=== PATIENT | female | born 1990 | race Caucasian/White ===

== ENCOUNTER 2020-07-06 14:55 | Inpatient (IN) | payer MEDICAID ==
[~2020-07-06] VITALS: Ht 154.9 cm; Wt 110.7 kg
[2020-07-06 16:30] VITALS: BP 133/95
[2020-07-06] MEDS ORDERED: ACETAMINOPHEN 325 MG TABLET PO PRN (17:30)
[2020-07-06] MEDS: IV NS 0.9% 1,000 ML IV SCH (18:02)
[2020-07-06] MEDS: MORPHINE SULFATE INJ 2 MG/ML DISP.SYRIN IV PRN ×2 (18:03→22:45)
[2020-07-06] MEDS ORDERED: ONDANSETRON HCL/PF 4 MG/2 ML VIAL IVP PRN (18:30)
[2020-07-06] MEDS ORDERED: Z GUARD REMEDY 2 OZ OINT TP PRN (18:30)
[2020-07-06] MEDS ORDERED: MAGNESIUM HYDROXIDE 30 ML UDC PO PRN (18:30)
[2020-07-06] MEDS ORDERED: MAG HYDROX/AL HYDROX/SIMETH 30 ML UDC PO PRN (18:30)
--- NOTE | 2020-07-06 19:30 | NUR ---
MS RN OPENING NOTE RECEIVED PATIENT IN BED. A/OX3. TOLERATING ROOM AIR. RESPIRATIONS ARE EVEN AND UNLABORED. NO S/S SOB NOTED. C/O PAIN N LEGS AND BACK. INFORMED PATIENT WILL TAKE A LOOK AT HER CHART TO SEE WHEN MEDICATIONS IS DUE. IN NO APPARENT DISTRESS. IV ACCESS IN RIGHT HAND#22 RUNNING NS@125ML/HR. BED IA LOW AND LOCKED, HOB ELEVATED IN SEMI FOWLERS, SIDE RAILS UP X2, CALL LIGHT WITHIN REACH. WILL CONTINUE TO MONITOR THROUGHOUT SHIFT.
[2020-07-06 20:00] VITALS: BP 131/88
--- NOTE | 2020-07-06 20:10 | NUR ---
MS/RN CLOSING NOTE PATIENT AWAKE IN HOSPITAL BED, A/O X4. NO ACUTE DISTRESS NOTED. PATIENT ON ROOM AIR TOLERATING WELL, NO SOB NOTED, BREATHING EVEN, NON LABORED. SAFETY MEASURES IN PLACE, BED LOCKED AND IN LOWEST POSITION, CALL LIGHT WITHIN REACH. WILL EDNORSE TO SUPERVISOR GEAR REPAIR NURSE.
[2020-07-06] MEDS: HYDROCODONE/APAP 5/325MG TABLET PO PRN (21:03)
[2020-07-07] MEDS: IV NS 0.9% 1,000 ML IV SCH ×3 (01:26→17:15)
[2020-07-07] MEDS: HYDROCODONE/APAP 5/325MG TABLET PO PRN ×4 (01:29→22:05)
[2020-07-07] MEDS: MORPHINE SULFATE INJ 2 MG/ML DISP.SYRIN IV PRN ×4 (02:58→20:02)
[2020-07-07 06:29] LABS: BASOPHILS % (AUTO) 0.3 % (0.0-2.0); EOSINOPHILS % (AUTO) 1.7 % (0.0-6.0); HEMATOCRIT 44 % (33-45); HEMOGLOBIN 14.9 g/dL (11.5-14.8); LYMPHOCYTES # (AUTO) 1.6 /CMM (0.8-4.8); LYMPHOCYTES % (AUTO) 18.5 % (20.0-44.0); MEAN CORPUSCULAR HGB CONC 34 g/dl (31.0-36.0); MEAN CORPUSCULAR VOLUME 91 fL (82-100); MONOCYTES # (AUTO) 0.6 /CMM (0.1-1.30); MONOCYTES % (AUTO) 6.9 % (2.0-12.0); NEUTROPHILS # (AUTO) 6.2 /CMM (1.8-8.9); NEUTROPHILS % (AUTO) 72.6 % (43.0-81.0); PLATELET COUNT (AUTO) 251 /CMM (150-450); RED BLOOD CELL COUNT(AUTO) 4.85 MIL/uL (4.0-5.2); WHITE BLOOD COUNT (AUTO) 8.5 K/uL (4.3-11.0)
--- NOTE | 2020-07-07 06:42 | NUR ---
MS RN OPENING NOTE PATIENT RESTING IN BED. A/OX3. REMAINS TOLERATING ROOM AIR.NO RESP DISTRESS. MANAGED PAIN WITH NORCO 5 AND MORPHINE THROUGHOUT SHIFT. NO DISTRESS. IV ACCESS MAINTAINED IN RIGHT HAND#22 RUNNING NS@125ML/HR. BED REMAINS LOW AND LOCKED, HOB ELEVATED IN SEMI FOWLERS, SIDE RAILS UP X2, CALL LIGHT WITHIN REACH. WILL ENDORSE TO ONCOMING SHIFT.
--- NOTE | 2020-07-07 07:10 | NUR ---
MS RN OPENING NOTE RECEIVED PATIENT IN BED. A/O X4. AMBULATORY. ON ROOM AIR, NO SOB NOTED. NO S/S OF RESPIRATORY DISTRESS. PATIENT IS IN PAIN, 8/10, FELT IN THE BACK GOING DOWN TO THE LEGS. IV ACCESS ON R HAND #22 G, INTACT, NS RUNNING @ 125 ML/HR. SAFETY MEASURES MAINTAINED. BED IN LOWEST POSITION, BRAKES LOCKED. SIDE RAILS UP X2. CALL LIGHT WITHIN REACH. WILL CONTINUE PLAN OF CARE.
[2020-07-07 07:13] LABS: CALCIUM, SERUM 7.8 mg/dL (8.5-10.1); CREATININE 0.6 mg/dL (0.6-1.3)
[2020-07-07 08:00] VITALS: BP 151/92
--- NOTE | 2020-07-07 12:15 | NUR ---
MS RN NOTE URINE SPECIMEN COLLECTED FOR TEST.
[2020-07-07 16:00] VITALS: BP 148/88
--- NOTE | 2020-07-07 18:19 | NUR ---
MS RN CLOSING NOTE PATIENT RESTING IN BED. A/O X4. AMBULATORY. ON ROOM AIR, NO SOB NOTED. IN NO APPARENT DISTRESS. IV ACCESS ON R HAND #22 G, INTACT AND PATENT, NS RUNNING @ 125 ML/HR. ALL NEEDS HAVE BEEN MET. ROUTINE MEDS WERE GIVEN ORDERED. SAFETY MEASURES MAINTAINED. BED IN LOWEST POSITION, BRAKES LOCKED. SIDE RAILS UP X2. CALL LIGHT WITHIN REACH. WILL ENDORSE CONTINUITY OF CARE TO ONCOMING SHIFT.
[2020-07-07 20:00] VITALS: BP 105/67
--- NOTE | 2020-07-07 20:55 | NUR ---
MS RN OPENING NOTE RECEIVED PATIENT IN BED. A/OX3. TOLERATING ROOM AIR. RESPIRATIONS ARE EVEN AND UNLABORED. NO S/S SOB NOTED. C/O PAIN WILL ADMINISTER NEXT PAIN MEDICATION IF AVAILABLE. NO APPARENT DISTRESS. IV ACCESS IN RIGHT HAND#22 RUNNING NS@125ML/HR. BED IS LOW AND LOCKED, HOB ELEVATED IN SEMI FOWLERS, SIDE RAILS UP X2, CALL LIGHT WITHIN REACH. WILL CONTINUE TO MONITOR THROUGHOUT SHIFT.
[2020-07-08] MEDS: IV NS 0.9% 1,000 ML IV SCH ×3 (00:58→18:11)
[2020-07-08] MEDS: MORPHINE SULFATE INJ 2 MG/ML DISP.SYRIN IV PRN ×3 (01:27→14:54)
[2020-07-08] MEDS ORDERED: FUROSEMIDE 20 MG/2 ML VIAL IV ONE (05:00)
[2020-07-08 06:32] LABS: BASOPHILS % (AUTO) 0.2 % (0.0-2.0); EOSINOPHILS % (AUTO) 3.1 % (0.0-6.0); HEMATOCRIT 42 % (33-45); HEMOGLOBIN 14.2 g/dL (11.5-14.8); LYMPHOCYTES # (AUTO) 1.4 /CMM (0.8-4.8); MEAN CORPUSCULAR HGB CONC 34 g/dl (31.0-36.0); MEAN CORPUSCULAR VOLUME 91 fL (82-100); MONOCYTES # (AUTO) 0.6 /CMM (0.1-1.30); MONOCYTES % (AUTO) 8.1 % (2.0-12.0); NEUTROPHILS # (AUTO) 5.4 /CMM (1.8-8.9); NEUTROPHILS % (AUTO) 70.6 % (43.0-81.0); PLATELET COUNT (AUTO) 230 /CMM (150-450); RED BLOOD CELL COUNT(AUTO) 4.66 MIL/uL (4.0-5.2); WHITE BLOOD COUNT (AUTO) 7.6 K/uL (4.3-11.0)
--- NOTE | 2020-07-08 06:48 | NUR ---
MS RN CLOSING NOTE PATIENT IN BED. A/OX3. TOLERATING ROOM AIR. NO RESP DISTRESS. MANAGED PAIN WITH MORPHINE AND NORCO. PATIENT HAS NOT HAD A BM, INFORMED HER THAT WITH PAIN MEDICATION SHE WILL GET CONSTIPATED AND IF SHE WOULD LIKE SOMETHING TO HELP HER HAVE A BM, PATIENT STATED YES BUT LATER. NO DISTRESS. IV ACCESS MAINTAIN IN LEFT WRIST #22#22 RUNNING NS@125ML/HR. BED IS LOW AND LOCKED, HOB ELEVATED IN SEMI FOWLERS, SIDE RAILS UP X2, CALL LIGHT WITHIN REACH. WILL ENDORSE TO ONCOMING SHIFT
--- NOTE | 2020-07-08 07:30 | NUR ---
MS RN OPENING NOTE RECEIVED PATIENT LYING IN BED, AWAKE. A/O X3. ON ROOM AIR. RESPIRATIONS EVEN AND UNLABORED. NO RESPIRATORY DISTRESS NOTED. C/O PAIN 11/20 - WILL ADMINISTER NEXT PAIN MEDICATION IF AVAILABLE. IV ACCESS IN RIGHT HAND #22 RUNNING NS @125ML/HR. BED LOCKED AND IN LOWEST POSITION, HOB ELEVATED IN SEMI FOWLERS, SIDE RAILS X2. CALL LIGHT WITHIN REACH. WILL CONTINUE TO MONITOR.
[2020-07-08 07:32] LABS: CALCIUM, SERUM 8.6 mg/dL (8.5-10.1); CREATININE 0.7 mg/dL (0.6-1.3); PHOSPHORUS 2.9 mg/dL (2.5-4.9); POTASSIUM 3.7 mmol/L (3.5-5.1)
[2020-07-08] MEDS: HYDROCODONE/APAP 5/325MG TABLET PO PRN ×3 (08:33→18:50)
[2020-07-08 08:56] VITALS: BP 110/64
--- NOTE | 2020-07-08 12:39 | NUR ---
CRITICAL LAB RESULT RECEIVED CRITICAL LAB RESULT FROM [facility] - CK: 52.6
[2020-07-08] MEDS: diphenhydrAMINE HCL 25 MG CAPSULE PO PRN (13:10)
[2020-07-08 16:11] VITALS: BP 109/64
--- NOTE | 2020-07-08 18:43 | NUR ---
MS RN OPENING NOTE PATIENT CURRENTLY LYING IN BED, AWAKE AND WATCHING TV. A/O X3. ON ROOM AIR. RESPIRATIONS EVEN AND UNLABORED. NO RESPIRATORY DISTRESS NOTED. C/O PAIN 09/20, DOES NOT WANT MEDICATION AT THIS TIME. LAST PAIN MED GIVEN @ 1454 - MORPHINE 2MG IV. IV ACCESS IN RIGHT HAND #22 RUNNING NS @125ML/HR. BED LOCKED AND IN LOWEST POSITION, HOB ELEVATED IN SEMI FOWLERS, SIDE RAILS X2. CALL LIGHT WITHIN REACH. WILL ENDORSE TO [employer] SETTER NURSE.
--- NOTE | 2020-07-08 19:36 | NUR ---
RN NOTES PATIENT CURRENTLY LYING IN BED, AWAKE AND WATCHING TV. A/O X3. ON ROOM AIR. RESPIRATIONS EVEN AND UNLABORED. NO RESPIRATORY DISTRESS NOTED. IV ACCESS IN RIGHT HAND #22 RUNNING NS @125ML/HR. BED LOCKED AND IN LOWEST POSITION, HOB ELEVATED IN SEMI FOWLERS, SIDE RAILS X2. CALL LIGHT WITHIN REACH. WILL CONTINUE TO MONITOR.
[2020-07-08 20:00] VITALS: BP 101/60
[2020-07-08 21:03] VITALS: BP 101/60
[2020-07-08 23:17] LABS: BILIRUBIN,URINE NEGATIVE (NEGATIVE); COLOR,URINE YELLOW (YELLOW); LEUKOCYTE ESTERASE ,URINE NEGATIVE (NEGATIVE); NITRITE, URINE NEGATIVE (NEGATIVE); PROTEIN,URINE NEGATIVE (NEGATIVE); UGLUCOSE NEGATIVE (NEGATIVE); UROBILINOGEN,URINE 0.2 EU/dL (0.2)
[2020-07-08 23:26] LABS: BACTERIA,URINE None seen /HPF (None Seen); MUCUS,URINE Few /LPF (None Seen); RBC,URINE 0-2 /HPF (0-2); SQUAMOUS EPITHELIAL CELL,UR Moderate /HPF (None Seen)
[2020-07-08 23:48] LABS: EOSINOPHIL,URINE None Seen
[2020-07-09] MEDS: IV NS 0.9% 1,000 ML IV SCH ×2 (00:08→09:13)
[2020-07-09 00:44] LABS: CREATININE, URINE < 13.0 MG/DL (30.0-125.0); URINE SODIUM, RANDOM 19 mmol/l (40-220)
[2020-07-09] MEDS: MORPHINE SULFATE INJ 2 MG/ML DISP.SYRIN IV PRN ×2 (04:57→15:12)
[2020-07-09] MEDS: diphenhydrAMINE HCL 25 MG CAPSULE PO PRN ×2 (05:09→21:14)
[2020-07-09 06:28] LABS: BASOPHILS % (AUTO) 0.2 % (0.0-2.0); EOSINOPHILS % (AUTO) 3.4 % (0.0-6.0); HEMATOCRIT 41 % (33-45); LYMPHOCYTES # (AUTO) 1.4 /CMM (0.8-4.8); LYMPHOCYTES % (AUTO) 17.5 % (20.0-44.0); MEAN CORPUSCULAR HGB CONC 34 g/dl (31.0-36.0); MEAN CORPUSCULAR VOLUME 90 fL (82-100); MONOCYTES # (AUTO) 0.5 /CMM (0.1-1.30); MONOCYTES % (AUTO) 7.1 % (2.0-12.0); NEUTROPHILS # (AUTO) 5.5 /CMM (1.8-8.9); NEUTROPHILS % (AUTO) 71.8 % (43.0-81.0); PLATELET COUNT (AUTO) 226 /CMM (150-450); RED BLOOD CELL COUNT(AUTO) 4.53 MIL/uL (4.0-5.2); WHITE BLOOD COUNT (AUTO) 7.7 K/uL (4.3-11.0)
[2020-07-09 06:43] LABS: CALCIUM, SERUM 8.8 mg/dL (8.5-10.1); CREATININE 0.6 mg/dL (0.6-1.3); MAGNESIUM 2.2 mg/dL (1.8-2.4); PHOSPHORUS 2.6 mg/dL (2.5-4.9); POTASSIUM 3.9 mmol/L (3.5-5.1)
--- NOTE | 2020-07-09 07:02 | NUR ---
RN NOTES PATIENT CURRENTLY LYING IN BED, AWAKE AND WATCHING TV. A/O X3. ON ROOM AIR. RESPIRATIONS EVEN AND UNLABORED. NO RESPIRATORY DISTRESS NOTED. IV ACCESS IN RIGHT HAND #22 RUNNING NS @125ML/HR. BED LOCKED AND IN LOWEST POSITION, HOB ELEVATED IN SEMI FOWLERS, SIDE RAILS X2. CALL LIGHT WITHIN REACH. WILL ENDORSE CARE TO DAY SHIFT NURSE.
--- NOTE | 2020-07-09 07:47 | NUR ---
MS RN OPENING NOTE RECEIVED PATIENT IN BED. A/O X4. PATIENT IS STABLE ON ROOM AIR. NO SOB NOTED. NO S/S OF RESPIRATORY DISTRESS. PATIENT IS AMBULATORY WITH [facility]. PATIENT HAS NO C/O PAIN AT THIS TIME. IV ACCESS ON LEFT WRIST #22 G, NS RUNNING @ 125 ML/HR. IV IS INTACT AND PATENT. SAFETY MEASURES MAINTAINED. BED IN LOWEST POSITION, SIDE RAILS UP X2. BRAKES LOCKED. CALL LIGHT AND SIDE TABLE WITHIN REACH. WILL CONTINUE PLAN OF CARE.
[2020-07-09 08:00] VITALS: BP 111/68
[2020-07-09] MEDS: HYDROCODONE/APAP 5/325MG TABLET PO PRN ×2 (09:00→19:56)
--- NOTE | 2020-07-09 09:00 | NUR ---
MS RN PAIN PATIENT C/O ACHING PAIN ALONG LEFT THIGH, RATED 7/10 ON PAIN SCALE. PT WAS MOANING AND GRASPING SITE. VS WNL. PER PT REQUEST, NORCO 3-325 MG PO Q4H PRN AT THIS TIME. WILL CONTINUE TO MONITOR.
[2020-07-09] MEDS: IV NS 0.9% 1,000 ML IV PRN ×2 (10:34→18:36)
--- NOTE | 2020-07-09 15:12 | NUR ---
MS RN PAIN PATIENT C/O ACHING PAIN ALONG LEFT THIGH, RATED 9/10 ON PAIN SCALE. PT WAS MOANING AND GRASPING SITE. VS BP126/84, HR 80, RR 20, T 98.1, SPO2 100%. PER PT REQUEST, MORPHINE 2 MG/ML IV Q4H PRN ADMINISTERED AT THIS TIME. WILL CONTINUE TO MONITOR.
--- NOTE | 2020-07-09 15:33 | NUR ---
IV ACCESS INSERTED IN RFA G #22, GOOD BLOOD RETURN NOTED. INTACT, PATENT, AND FLUSHING WELL. PT TOLERATED WELL. WILL CONTINUE WITH PLAN OF CARE.
--- NOTE | 2020-07-09 18:48 | NUR ---
MS RN CLOSING NOTE PATIENT RESTING COMFORTABLY IN BED. A/O X4. PT IS AMBULATORY WITH [facility]. PT IS STABLE ON ROOM AIR. NO SOB NOTED. NO S/S OF RESPIRATORY DISTRESS. IV ACCESS IS INTACT AND PATENT, NS RUNNING @ 125 ML/HR. ALL NEEDS HAVE BEEN MET. PAIN MANAGEMENT ADMINISTERED PER ORDER. SAFETY PRECAUTIONS MAINTAINED AT ALL TIMES. BED IN LOWEST POSITION, BRAKES LOCKED. SIDE RAILS UP X2. CALL LIGHT AND SIDE TABLE WITHIN REACH. WILL ENDORSE TO ONCOMING NURSE FOR CONTINUITY OF CARE.
--- NOTE | 2020-07-09 18:58 | NUR ---
PT C/O OF CONSTIPATION AT THIS, ACTIVE BOWEL SOUNDS NOTED IN ALL QUADRANTS, ABDOMEN IS SOFT AND NON TENDER. PT STATES "I HAVE NOT HAD A BOWEL MOVEMENT SINCE HOSPITALIZATION". PER PT REQUEST, MILK OF MAGNESIA 30MLPO HS PRN FOR CONSTIPATION WAS ADMINISTERED AT THIS TIME. WILL ENDORSE TO CASINO MANAGER NURSE FOR CONTINUE MONITORING Addendum: 07/09/20 at 1901 by SHERRON HEIN RN PT C/O OF CONSTIPATION AT THIS, ACTIVE BOWEL SOUNDS NOTED IN ALL QUADRANTS, ABDOMEN IS SOFT AND NON TENDER. PT STATES "I HAVE NOT HAD A BOWEL MOVEMENT SINCE HOSPITALIZATION". PER PT REQUEST, MILK OF MAGNESIA 30ML PO HS PRN FOR CONSTIPATION WAS ADMINISTERED AT THIS TIME. WILL ENDORSE TO CASINO MANAGER NURSE FOR CONTINUE MONITORING
--- NOTE | 2020-07-09 19:42 | NUR ---
MS RN OPENING NOTE Patient awake in bed, A/O x4. Breathing even and unlabored. No acute distress or SOB noted. Pain level 7/10 in left leg. IV sites patent and intact. No redness or infiltration. Patient denies nausea, vomiting, diarrhea. Patient is ambulatory with bathroom privileges. Bed in low position, wheels locked, side rails up x2, call light within reach.
[2020-07-09 19:50] VITALS: BP 125/72
[2020-07-09 20:00] VITALS: BP 125/72
--- NOTE | 2020-07-09 21:21 | NUR ---
MS RN NOTE pt c/o generalized itching. Administered PRN benadryl as ordered by MD. Will continue to monitor.
[2020-07-10] MEDS: IV NS 0.9% 1,000 ML IV PRN ×2 (01:29→10:06)
[2020-07-10] MEDS: MORPHINE SULFATE INJ 2 MG/ML DISP.SYRIN IV PRN (04:46)
--- NOTE | 2020-07-10 06:23 | NUR ---
MS RN CLOSING NOTE Patient asleep in bed. No acute distress. Breathing even and unlabored. IV site patent and intact running IV NS @ 125 ml/hr. Patient void via BRP 4x. Bed in low position, wheels locked, side rails up x2, call light within reach.
--- NOTE | 2020-07-10 07:07 | NUR ---
MS RN OPENING NOTE RECEIVED PATIENT AWAKE IN BED AT THIS TIME. A/O X4. PATIENT IS STABLE ON ROOM AIR. NO SOB NOTED. NO S/S OF RESPIRATORY DISTRESS. PATIENT IS AMBULATORY WITH [facility]. PATIENT HAS NO C/O PAIN AT THIS TIME. IV ACCESS ON RFA #22G, NS RUNNING @ 125 ML/HR. IV IS INTACT AND PATENT. SAFETY MEASURES IN PLACE AND MAINTAINED AT ALL TIMES. BED IN LOWEST LOCKED POSITION, SIDE RAILS UP X2. CALL LIGHT AND TABLE WITHIN REACH. WILL CONTINUE PLAN OF CARE.
[2020-07-10 08:00] VITALS: BP 112/64
--- NOTE | 2020-07-10 13:20 | NUR ---
MS MILL OPERATOR HELPER NOTES PT DISCHARGE HOME AT THIS TIME. PT MEDICALLY STABLE AND CLEARED FOR DISCHARGE BY DR STRINGER. ALL DISCHARGE INSTRUCTIONS AND FOLLOW UP RESOURCES PROVIDED FOR. PT VERBALIZED UNDERSTANDING. ALL CARE, NEEDS, MEDICATIONS AND TREATMENT ADMINISTERED ANTICIPATED PER ORDER. ID BAND REMOVED. IV ACCESS REMOVED, PRESSURE APPLIED, SECURED WITH GAUZE AND TAPE. NO S/O BLEEDING NOTED. BELONGINGS ACCOUNTED FOR, SIGNED BY PT, AND WITH PT. PT LEFT UNIT IN STABLE CONDITION, ACCOMPANIED TO LOBBY ACCOMPANIED BY MELCHOR GAMING. KIAN, CHARGE NURSE AND DR STRINGER AWARE
--- NOTE | 2020-07-10 18:42 | NUR ---
MS FEDERAL LAW CLERK NOTES PT DISCHARGE TO [facility] ROOM 21A AT THIS TIME. PT MEDICALLY STABLE AND CLEARED FOR DISCHARGE BY DR HOWARD. REPORT CALLED IN TO MELCHOR RAMOS @ [facility]. PER RACHEL, JENISE NOT REMOVE [facility] CATHETER MASD. ALL DISCHARGE INSTRUCTIONS PROVIDED. PT UNABLE TO SIGN DISCHARGE. DISCHARGE FORMS SIGNED BY TWO NURSES. ALL CARE, NEEDS, MEDICATIONS AND TREATMENT ADMINISTERED ANTICIPATED PER ORDER. ID BAND REMOVED. IV ACCESS REMOVED, PRESSURE APPLIED, SECURED WITH GAUZE AND TAPE. NO S/O BLEEDING NOTED. BELONGINGS ACCOUNTED FOR, SIGNED BY PT, AND WITH PT. PICTURES TAKEN AND FILED IN CHART. PT TRANSPORTED OUT OF UNIT IN STABLE CONDITION BY TWO [facility]. KIAN, CHARGE NURSE, DR SARAH AND DR HOWARD AWARE
== END 2020-07-10 13:18 | disposition home or self-care (01) | DRG 351 ==
LOC: MED 16:20
PROVIDERS: ADMIT Internal Medicine; ATTEND Internal Medicine
DX: M62.82 Rhabdomyolysis (principal); E66.01 Morbid (severe) obesity due to excess calories; Z68.42 Body mass index [BMI] 45.0-49.9, adult
CPT/HCPCS: 36415; 80048-TC; 81001; 82550-TC; 82553; 82570-TC; 83735-TC; 84100-TC; 84155-TC; 84300-TC; 84703-TC; 85025-TC; 87081-TC; G0378; J2270; J7030; Q0163